=== PATIENT | male | born 1955 | race Hispanic/Latino ===

== ENCOUNTER 2017-02-26 07:55 | Emergency (ER) | payer OTHER ==
[~2017-02-26] VITALS: Ht 172.7 cm; Wt 86.4 kg
[2017-02-26 08:00] VITALS: BP 143/87; PULSE 64; RESP 20; O2SAT 99
--- NOTE | 2017-02-26 08:05 | ED.REPORT ---
HPI-Neurologic Deficit Date of Service Feb 26, 2017 ED Provider: Dr. Bhagat Pt is a Cymro speaking 61 year old male with a history of HTN and hyperlipidemia who presents to the ED with concerns fo nausea and vomiting secondary to vertigo, onset several hours ago. He reports that he has experienced these symptoms twice in the past, both times with similar symptoms. Pt reports that he was previously medicated for these episodes, but has since been taken off due to the long periods without symptoms. He reports that he has a spinning sensation, and denies other focal neurologic deficits. He has no other complaints. Nursing Notes Stated Complaint: VERTIGO Chief Complaint: General Complaint Nursing Notes Reviewed: Yes Allergies: Coded Allergies: No Known Allergies (Unverified , 02/26/17) Scheduled PRN Meclizine (Bonine) 25 Mg Tab.chew 25 MG PO TID PRN PRN For Dizziness Ondansetron ODT (Zofran ODT) 4 Mg Tablet 4 MG PO Q4H PRN PRN For Nausea General Time Seen by Provider: 08:18 Chief Complaint Off balance Hx Obtained From: Patient, Maintenance Journeyman Arrived By: Walk-in Sudden in Onset?: Yes Onset Occurred: Just prior to arrival Symptom Duration: Since onset Severity: Current: No pain currently Severity: Maximum: No pain Similar Sx Previous: Yes Past Medical History Past Medical History Vertigo Reports: Hyperlipidemia, Hypertension Past Surgical History Denies Smoking History Never Smoker Social History Alcohol Use: Denies alcohol use Drug Use: Denies drug use Ambulatory Status Independent Review of Systems Constitutional: Denies: Chills, Fever, Malaise, Weakness - generalized GI: Reports: Nausea, Vomiting, Denies: Abdominal pain, Constipation, Diarrhea Musculoskeletal: Denies: Back pain, Extremity pain, Neck pain Neurologic: Reports: Dizziness, Spinning sensation, Denies: Change LOC, Headache, Lightheaded, Syncope, Weakness Complete sys rev & neg: except as marked. Physical Exam Initial Vital Signs Vital Signs (First) Date Time Temp Pulse Resp B/P Pulse Ox O2 Delivery O2 Flow Rate FiO2 02/26/17 08:00 36.0 64 20 143/87 99 Room Air Initial VS: Reviewed ENT: Mucous membranes moist, Conjunctiva normal, No scleral icterus Neck: Supple, Non-tender, Full range of motion Abdomen / GI: Soft, Non-tender, No guarding, No rebound, No distention Skin: Warm, Dry, No cyanosis General/Constitutional: Awake, Alert Actively vomiting Head / Eyes: Atraumatic, Normocephalic, PERRL, EOMI Respiratory / Chest: Atraumatic, Breath sounds NL, Breath sounds = bilat, No respiratory distress Cardiovascular: Heart rate NL, Regular rhythm, Heart sounds NL, No gallop, No murmurs, No rubs Neurologic: Oriented X3, Speech NL, No motor deficits, No sensory deficits, CN II - XII intact Re-Eval/Medical Decision Med Decision/Clinical Course No evidence of stroke, symptoms dramatically improved. Neurologically intact. Will discharge on Zofran and meclizine. Return and follow-up precautions given Source of Hx: Old records Re-Evaluation/Progress : Time of Eval: 09:07 Re-Evaluation/Progress Note: Pt is rechecked, he is up and moving around. He reports that he feels completely resolved. He is informed of his diagnosis and the plan to discharge him at this time. He understands and agrees, all questions are addressed. Counseled Regarding: Diagnosis, Lab results, When/why to return to ED Discharge & Departure Impression: Primary Impression: Vertigo Disposition: Home Discharge Condition All VS Reviewed: Yes Condition: Stable Patient Instructions: Vertigo (ED) Additional Instructions: Take meclizine for your dizziness. Use Zofran as needed for nausea. Follow-up with your regular doctor as needed. Return to the ER if you develop signs or symptoms of stroke, persistent vomiting , or other concerns. [place] meclizine para yinka mareos. Use Zofran cuando sea necesario para las n useas. Matt un seguimiento con ortiz mdico habitual segn sea necesario. Vuelva a la nicole de emergencias si presenta signos o sntomas de apopleja, v mitos persistentes u otras preocupaciones. Referrals: [facility] Scribe Attestation Portions of this note were transcribed by Ivana Hernandez. I, Dr. Bhagat personally performed the history, physical exam and medical decision-making; I reviewed and confirmed the accuracy of the information in the transcribed note. Signed by: Norma Shah, 02/26/2017 09:07 copies to: [facility] Ferdo Bhagat DO Feb 26, 2017 08:05 HEATHER HERNANDEZ Feb 26, 2017 08:21
[2017-02-26] MEDS ORDERED: Promethazine 25 mg/mL Inj IM ONE (08:10)
[2017-02-26] MEDS ORDERED: MECL-114 PO (09:08)
[2017-02-26] MEDS ORDERED: ONDA4TAB9 PO (09:08)
[2017-02-26] MEDS ORDERED: Ondansetron 8 mg ODT Tablet PO ONE (09:35)
[2017-02-26 10:36] VITALS: BP 143/87; PULSE 64; RESP 20; O2SAT 99
== END 2017-02-26 10:34 | disposition home or self-care (01) ==
LOC: SED 07:55
DX: R42 Dizziness and giddiness (principal); R11.2 Nausea with vomiting, unspecified; E78.5 Hyperlipidemia, unspecified; I10 Essential (primary) hypertension
CPT/HCPCS: 96372; 99283; J2550